=== PATIENT | female | born 1985 | race Caucasian/White ===

== ENCOUNTER 2019-04-26 10:05 | Emergency (ER) | payer MEDICAID ==
--- NOTE | 2019-04-26 10:17 | EDM.PDOC ---
ED HPI GENERAL MEDICAL PROBLEM - General Chief Complaint: Abdominal Pain Stated Complaint: STOMACH PAIN/THROWING UP Time Seen by Provider: 04/26/19 10:13 Source of Information: Reports: Patient, Old Records, RN, RN Notes Reviewed History Limitations: Reports: No Limitations - History of Present Illness INITIAL COMMENTS - FREE TEXT/NARRATIVE: Pt presents to ER by POV with c/o recurring severe abdominal pain with nausea and vomiting for the past 4 weeks. Pt states she has been doctoring in [place], but no one there could figure out why she has abdominal pain, so they referred her [facility]. She was driving to [place] this morning when the pain returned , so she diverted her travel and came to the ER in [place]. Pt rates the pain /. She admits that she smokes marijuana to help with nausea. Pt states that none of the medications she has been prescribed are helping. The patient admits that her [place] physicians have discussed with her the possibility that her symptoms may be the result of cannabinoid hyperemesis syndrome, but she does not believe that marijuana could be bad for her. Pt is specifically requesting Dilaudid by IV as that is the only thing that helps her pain. Duration: Recurring Location: Reports: Abdomen Quality: Reports: Same as Previous Episode Severity: Severe Improves with: Reports: None Worsens with: Reports: None Associated Symptoms: Reports: No Other Symptoms Treatments [employer]: Reports: Other Medication(s) Abdominal Pain Score (Numeric/FACES): 10 - Related Data Allergies Allergy/AdvReac Type Severity Reaction Status Date / Time tape Allergy Blisters Uncoded 04/26/19 10:19 Home Meds: Home Meds . [No Known Home Meds] 04/26/19 [History] Past Medical History Gastrointestinal History: Reports: Other (See Below) (Abdominal pain with nausea and vomiting) Endocrine/Metabolic History: Reports: Obesity/BMI 30+ Social & Family History - Family History Family Medical History: Noncontributory - Recreational Drug Use Recreational Drug Use: Yes Drug Use in Last 12 Months: Yes Recreational Drug Type: Reports: Marijuana/Hashish Recreational Drug Use Frequency: Weekly - Living Situation & Occupation Living situation: Reports: , with Spouse ED ROS GENERAL - Review of Systems Review Of Systems: Comprehensive ROS is negative, except as noted in HPI. ED EXAM, GI/ABD - Physical Exam Exam: See Below Exam Limited By: No Limitations General Appearance: Alert, Anxious, Moderate Distress (due to abdominal pain), Obese, Active Emesis (with severe wretching and dry heaves) Eyes: Bilateral: Normal Appearance, EOMI Ears: Normal External Exam Nose: Normal Inspection, Normal Mucosa, No Blood Throat/Mouth: Normal Inspection, Normal Lips, Normal Teeth, Normal Gums, Normal Oropharynx, Normal Voice, No Airway Compromise Head: Atraumatic, Normocephalic Neck: Normal Inspection, Supple, Non-Tender, Full Range of Motion Respiratory/Chest: No Respiratory Distress, Lungs Clear, Normal Breath Sounds, No Accessory Muscle Use, Chest Non-Tender Cardiovascular: Normal Peripheral Pulses, Regular Rate, Rhythm, No Edema, No Gallop, No JVD, No Murmur, No Rub GI/Abdominal Exam: Normal Bowel Sounds, Soft, No Organomegaly, No Distention, No Abnormal Bruit, No Mass, Pelvis Stable, Tender (Epigastric region). No: Guarding, Rigid, Rebound (Female) Exam: Deferred Rectal (Female) Exam: Deferred Back Exam: Normal Inspection, Full Range of Motion. No: CVA Tenderness (L), CVA Tenderness (R) Extremities: Normal Inspection, Normal Range of Motion, Non-Tender, Normal Capillary Refill, No Pedal Edema Neurological: Alert, Oriented, CN II-XII Intact, Normal Cognition, Normal Gait, No Motor/Sensory Deficits Psychiatric: Anxious, Depressed Mood, Tearful Skin Exam: Warm, Dry, Intact, Normal Color, No Rash Course - Vital Signs Last Recorded V/S: Last Vital Signs Temp 97.6 F 04/26/19 10:10 Pulse 88 04/26/19 10:10 Resp 16 04/26/19 10:10 BP 109/80 04/26/19 10:10 Pulse Ox 96 04/26/19 10:10 - Orders/Labs/Meds Labs: Laboratory Tests 04/26/19 04/26/19 Range/Units 10:25 10:25 WBC 8.6 (5.0-10.0) 10^3/uL RBC 3.96 L (4.2-5.4) 10^6/uL Hgb 12.9 (12.0-16.0) g/dL Hct 38.0 (37.0-47.0) % MCV 96.0 (80-100) fL MCH 32.6 (27.0-34.0) pg MCHC 33.9 (33.0-35.0) g/dL Plt Count 149 L (150-450) 10^3/uL Neut % (Auto) 83.5 H (42.2-75.2) % Lymph % (Auto) 10.1 L (20.5-50.1) % [place] % (Auto) 5.1 (2-8) % Eos % (Auto) 1.3 (1.0-3.0) % Baso % (Auto) 0.0 (0.0-1.0) % Sodium 136 (135-145) mmol/L Potassium 3.6 (3.6-5.0) mmol/L Chloride 104 (101-111) mmol/L Carbon Dioxide 22.0 (21.0-31.0) mmol/L Anion Gap 13.6 BUN 12 (7-18) mg/dL Creatinine 0.8 (0.6-1.3) mg/dL Est Cr Clr Drug Dosing 102.78 mL/min Estimated GFR (MDRD) > 60 BUN/Creatinine Ratio 15.00 Glucose 108 H (74-105) mg/dL Calcium 8.7 (8.4-10.2) mg/dl Total Bilirubin 0.9 (0.2-1.0) mg/dL AST 22 (10-42) IU/L ALT 23 (10-60) IU/L Alkaline Phosphatase 43 (42-121) IU/L Total Protein 6.3 L (6.7-8.2) g/dl Albumin 4.0 (3.2-5.5) g/dl Globulin 2.3 Albumin/Globulin Ratio 1.74 Amylase 137 H (28-100) U/L Lipase 63 H (22-51) U/L Meds: Medications Discontinued Medications Generic Name Dose Route Start Last Admin Trade Name Freq PRN Reason Stop Dose Admin Diphenhydramine HCl 25 mg 04/26/19 10:23 04/26/19 10:39 Benadryl IVPUSH 04/26/19 10:24 25 mg ONETIME ONE Administration Hydromorphone HCl 0.5 mg 04/26/19 11:16 04/26/19 11:24 Dilaudid IVPUSH 04/26/19 11:17 0.5 mg ONETIME ONE Administration Sodium Chloride 1,000 mls @ 999 mls/hr 04/26/19 10:22 04/26/19 10:37 Normal Saline IV 04/26/19 11:22 999 mls/hr .BOLUS ONE Administration Ketorolac Tromethamine 30 mg 04/26/19 11:16 04/26/19 11:23 Toradol IVPUSH 04/26/19 11:17 30 mg ONETIME ONE Administration Lorazepam 2 mg 04/26/19 10:53 04/26/19 11:06 Ativan IM 04/26/19 10:54 2 mg ONETIME ONE Administration Metoclopramide HCl 10 mg 04/26/19 10:22 04/26/19 10:39 Reglan IVPUSH 04/26/19 10:23 10 mg ONETIME ONE Administration Ondansetron HCl 4 mg 04/26/19 10:53 04/26/19 11:02 Zofran IV 04/26/19 10:54 4 mg ONETIME ONE Administration Ondansetron HCl 4 mg 04/26/19 11:15 04/26/19 11:22 Zofran IV 04/26/19 11:16 4 mg ONETIME ONE Administration Scopolamine 1.5 mg 04/26/19 10:52 04/26/19 11:03 Transderm-Scop TOP 04/26/19 10:53 1.5 mg ONETIME ONE Administration Sodium Chloride 10 ml 04/26/19 10:21 04/26/19 10:33 Saline Flush FLUSH 10 ml ASDIRECTED PRN Administration Keep Vein Open - Re-Assessments/Exams Free Text/Narrative Re-Assessment/Exam: 04/26/19 10:11 Records requested from [place]. 04/26/19 11:39 Pt does not feel she can continue to [place] by car due to abdominal pain with nausea and vomiting. Plan to transfer pt to [facility] by ground ambulance. 04/26/19 12:57 [facility] hospitalist refused to accept the pt transfer stating that records review reveals to him that the pt has many years of chronic cyclic vomiting syndrome with "doctor and narcotics shopping" in multiple cities, and he advises treating the pt with zofran and IV fluids with no controlled substances and d/c the pt home, or send her back to [place], but that [place] has nothing to offer this pt. Departure - Departure Time of Disposition: 11:40 Disposition: Home, Self-Care 01 Condition: Fair Clinical Impression: Intractable vomiting with nausea, Cyclic vomiting syndrome, Cannabis abuse, Chronic abdominal pain, Cannabis hyperemesis syndrome concurrent with and due to cannabis abuse, Drug-seeking behavior - Discharge Information *PRESCRIPTION DRUG MONITORING PROGRAM REVIEWED*: No *COPY OF PRESCRIPTION DRUG MONITORING REPORT IN PATIENT BRIDGET: No Instructions: Abdominal Pain, Adult, Nausea and Vomiting, Adult, [id number] Forms: ED Department Discharge Additional Instructions: Follow with your primary doctor or specialist.
[2019-04-26] MEDS ORDERED: Sodium Chloride 0.9% 10 ML Syringe FLUSH PRN (10:21)
[2019-04-26] MEDS ORDERED: Sodium Chloride 0.9% 1,000 ML IV ONE (10:22)
[2019-04-26] MEDS ORDERED: Metoclopramide 10 MG/2 ML SDV IVPUSH ONE (10:22)
[2019-04-26] MEDS ORDERED: diphenhydrAMINE 50 MG/ML SDV IVPUSH ONE (10:23)
[2019-04-26] MEDS ORDERED: Scopolamine 1.5 MG Transdermal Patch TOP ONE (10:52)
[2019-04-26] MEDS ORDERED: LORazepam 2 MG/ML Syringe IM ONE (10:53)
[2019-04-26] MEDS ORDERED: Ondansetron 4 MG/2 ML SDV IV ONE ×2 (10:53→11:15)
[2019-04-26 10:55] LABS: ANION GAP 13.6; CHLORIDE,CL 104 mmol/L (101-111); SODIUM,NA 136 mmol/L (135-145)
[2019-04-26] MEDS ORDERED: HYDROmorphone 1 MG/ML Syringe IVPUSH ONE (11:16)
[2019-04-26] MEDS ORDERED: Ketorolac 30 MG/ML SDV IVPUSH ONE (11:16)
== END 2019-04-26 13:34 | disposition home or self-care (01) ==
LOC: DL.ED 10:05
DX: R11.15 Cyclical vomiting syndrome unrelated to migraine (principal); F12.988 Cannabis use, unspecified with other cannabis-induced disorder; F12.10 Cannabis abuse, uncomplicated; G89.29 Other chronic pain; R10.13 Epigastric pain; Z72.89 Other problems related to lifestyle; E66.9 Obesity, unspecified; Z68.29 Body mass index [BMI] 29.0-29.9, adult
CPT/HCPCS: 36415; 80053; 82150; 83690; 85025; 96361; 96372; 96374; 96375; 99284; A9270; J1170; J1200; J1885; J2060; J2405; J2765; J7030